=== PATIENT | male | born 1980 | race Caucasian/White ===

== ENCOUNTER 2019-03-30 12:22 | Inpatient (IN) ==
--- OUTSIDE RECORDS SUMMARY | 2019-03-30 12:25 | External Medical Summary | Continuity of Care Document ---
:1980 Author Name Monika Crane, Provider Address Unavailable Unavailable , Care Team Providers Name Role Phone Jake Hooks [email or web address] Unavailable Unavailable Unavailable Unavailable Unavailable Assessments Assessed Problems:Cholelithiasis Problems Cholelithiasis (574.20) (K80.20) Acute and chronic cholecystitis (575.12) (K81.2) Allergies and Adverse Reactions Amoxicillin CAPS (Allergy) cefaclor (Allergy) Macrolides (Allergy) Medications No Reported Medications Refills: 0 Procedures History of Laparoscopic Cholecystectomy With Cholangiography Status: Completed History of ERCP With Removal Of Stones From Biliary/Pancreat ic Status: Completed Ducts Immunizations Immunizations not documented Family History Father Family history of diabetes mellitus (V18.0) (Z83.3) Status: Active Family history of malignant neoplasm (V16.9) (Z80.9) Status: Active Family history of cardiac disorder (V17.49) (Z82.49) Status: Active Mother Family history of hypertension (V17.49) (Z82.49) Status: Act lenka Social History - Smoking Status Never smoker Interventions InstructionsAvoid alcoholic beverages.; Done: 18 Nov 2014Eat a low fat and low cholesterol diet.; Done: 18 Nov 2014 Plan of Treatment Planned Observations Planned Goals not documented Results No Known Results Results not documented Encounters Appointment; Jake Hooks M.D. 18-Nov-2014 8:40 Encounter Diagnosis: Problem not documented
[2019-03-30] MEDS ORDERED: SODIUM CHLORIDE 0.9% 1000ML 1,000 ML IV ONE (12:43)
[2019-03-30 13:06] LABS: Hematocrit (blood only) 38.8 % (42-52); Hemoglobin 13.7 g/dL (14.0-18.0); Mean Corpuscular Hgb Conc 35.3 g/dL (32-36); Mean Platelet Volume 9.2 fL (7.4-10.4); Platelet Count 226 K/uL (130-400); RDW Coefficient of Variation 12.3 % (11.5-14.5); RDW Standard Deviation 37.5 fL (36.4-46.3); Red Blood Count 4.62 M/uL (4.7-6.1); White Blood Count 21.93 K/uL (4.8-10.8)
[2019-03-30 13:24] LABS: BUN Creatinine Ratio 10.3 (10-20); Calcium 9.1 mg/dl (8.5-10.1); Creatinine Clr Calc Pharmacy 86.8 ml/min; Est GFR (African American) 89.6; Est GFR (Non-African American) 77.3; Potassium 3.4 mmol/L (3.5-5.1)
[2019-03-30 13:28] LABS: Basophils # (auto) 0.02 K/uL (0-0.2); Basophils % (auto) 0.1 %; Eosinophils # (auto) 0.44 K/uL (0-0.5); Immature Granulocytes % (auto) 0.5 %; Lymphocytes # (auto) 1.37 K/uL (1.2-3.4); Lymphocytes % (auto) 6.2 %; Monocytes # (auto) 3.18 K/uL (0.11-0.59); Monocytes % (auto) 14.5 %; Neutrophils # (auto) 16.82 K/uL (1.4-6.5); Neutrophils % (auto) 76.7 %
--- NOTE | 2019-03-30 13:35 | Ultrasound Report ---
ULTRASOUND RIGHT CHEST WALL NONVASCULAR CLINICAL HISTORY: Right chest wall swelling and erythema. COMPARISON STUDY: No priors. FINDINGS: Real-time, grayscale, and color flow sonography of the right chest anterior wall is perform ed at the indicated site of interest. There is subcutaneous soft tissue edema and fluid identified th e site of interest. Mild phlegmonous change is suggested. No organized fluid collection is seen to in dicate abscess. The regional tissues appears slightly hyperemic on color imaging. IMPRESSION: There is soft tissue edema with subcutaneous fluid and possible phlegmonous change identi fied in the right chest wall at the site of interest. No organized/drainable fluid collection is iden tified. Electronically signed by: Calvin Abbott M.D. 03/30/2019 1:34 PM
[2019-03-30] MEDS ORDERED: VANCOMYCIN HCL 2,000 MG in SODIUM CHLORIDE 0.9% 500 ML IV ONE (13:45)
[2019-03-30] MEDS ORDERED: VANCOMYCIN CONSULT ACTIVE PRN ×2 (13:45→15:21)
--- NOTE | 2019-03-30 14:52 | History & Physical Report ---
Date of Service March 30, 2019 Assessment & Plan (1) Cellulitis of chest wall: Pt is 38 y/o M without significant PMH presented to ER with c/o right chest redness x 2 days. Reported initially noticed blister like area that he squeezed expressing purulent drainage then bloody drainage and has had increased surrounding erythema to area. C/O chills. In ER pt afebrile, P: 114 down to 92, R: 16, BP: 125/90, 99% on RA. WBC: 21.9, neut: 16, H/H: 13.7/38 (Hgb 15 in 2015), lactate: 1.6 US CHEST: There is soft tissue edema with subcutaneous fluid and possible phlegmonous change identified in the right chest wall at the site of interest. No organized/drainable fluid collection is identified. -Meets SIRS criteria with tachycardia and leukocytosis. -In ER given Vancomycin, 1L NSS -Blood cultures pending -Wound culture pending -MRSA swab -Cefepime, Vancomycin (Pt has been on cefoxitin during previous hospital admission and tolerated without adverse event) -IVF -Monitor CBC, BMP -If worsening or no improvement may need to consider further imaging or surgery consult to consider possible incision and drainage (2) Hypokalemia: K: 3.4 -Replace and monitor BMP DVT Prophylaxis -Ambulate, low risk Follows with Dr Valdez for routine care Pt was seen and care coordinated with Dr Casillas. See addendum History of Present Illness Chief Complaint: Right chest redness Primary Care Provider: Dr Valdez Pt is 38 y/o M without significant PMH presented to ER with c/o right chest redness x 2 days. Patient states approximately 2 days ago noticed a blister like area to right upper chest. Patient admits to squeezing area and initially reports thick purulent drainage then followed by thin or bloody drainage. Yesterday started with tactile fever with chills. Noticed surrounding redness and today was significantly increased surrounding redness. Patient is unsure if had insect bite. Patient does shave chest with clippers. Reports has not been swimming in the past 2 months and was in hot tub 2 months ago. Reports was on clindamycin for 10 days approximately 1 month ago for dental infection. Denies history of MRSA. Denies other rashes, N/V/D/C, TAVARES, dizziness, syncope, vision changes, neck pain, CP, SOB, orthopnea, palpitations, cough, sore throat, dysphagia, choking, otalgia, rhinorrhea, abdominal pain, paresthesias, weakness, extremity weakness, extremity edema, urinary symptoms. Allergies Allergy/AdvReac Type Severity Reaction Status Date / Time cefaclor Allergy Mild Unknown Unverified 03/30/19 13:01 Macrolide Antibiotics Allergy Mild Unknown Unverified 03/30/19 13:01 amoxicillin Allergy Unknown CHILDHOOD Verified 03/30/19 13:01 REACTION Home Medications Home Medications Medication Instructions Recorded Confirmed Type No Known Home Medications 03/30/19 03/30/19 History Past Med/Surg History Medical History Acute cholecystitis (Resolved) Surgical History History of cholecystectomy (Chronic) 2015 Family History Other Cancer Diabetes Social History Preferred Language: Kenyan marital status: Single Current Living Situation: Alone current occupational status: employed Feels Safe at Home: Yes Smoking Status: Never smoker Hx Alcohol Use: No Hx Substance Use: No Review of Systems Review of Systems: All systems reviewed & are unremarkable except as noted in HPI & below Physical Exam Physical Exam: General: no acute distress, WDWN Head: normocephalic, atraumatic Eyes: PERRL, EOM's intact, conjunctiva non-injected, anicteric ENT: normal inspection external ears, nose, mucous membranes moist Neck: supple, trachea midline, non-tender Lungs: clear, no respiratory distress, no wheezing/rhonchi/rales CV: RRR, no murmur, no JVD, no pretibial edema Abd: normal BS, soft, non-tender Ext: no cyanosis, no calf tenderness Neuro: A&O x 3, no focal deficits noted, normal affect Skin: warm, dry Results & Data Vital Signs (Past 12 Hours) Vital Signs Temp Pulse Pulse Resp BP BP Pulse Ox 03/30/19 13:30 92 H 18 139/86 100 03/30/19 12:27 36.9 C 114 H 16 125/90 99 Laboratory Results Short CBC 03/30/19 Range/Units 12:57 WBC 21.93 H (4.8-10.8) K/uL Hgb 13.7 L (14.0-18.0) g/dL Hct 38.8 L (42-52) % Plt Count 226 (130-400) K/uL BMP 03/30/19 12:57 Sodium 136 Potassium 3.4 L Chloride 103 Carbon Dioxide 27 BUN 12 Creatinine 1.18 Glucose 126 H Calcium 9.1 Diagnostic Findings US CHEST: IMPRESSION: There is soft tissue edema with subcutaneous fluid and possible phlegmonous change identified in the right chest wall at the site of interest. No organized/drainable fluid collection is identified. Code Status & VTE Plan VTE Prophylaxis Plan VTE Prophylaxis will be ordered: No Supervising Physician Co-Signing Physician Notes I have seen the patient with physician hr assistant and agree with the assessment and plan and would like to comment that This is a 29 year old Male with cellulitis of anterior chest wall with leukocytosis of 22,000. Patient meets SIRS criteria but is hemodynamically stable. Patient could not tell whether the blistering that patient had popped over the right pectoralis was from insect bite or from shaving with razor blade. In the ED, patient was ordered Vancomycin. Will in addition add Cefepime. Follow blood cultures, wound cultures, and MRSA screen. mildly low serum potassium and give potassium repletions Physical Exam: General: no acute distress Skin/Chest: diffuse redness over bilateral pectoralis, with residual skin lesion from blister that had been popped on right pectoralis Lungs: clear to auscultation bilaterally, no wheezing Abdomen: soft, nontender, positive bowel sounds Extremities: no edema Neuro: moves all extremities, awake and alert, oriented, cooperative, verbal agree with other assessment and plan and history as documented by physician hr assistant My colleague Dr. Larsen will be following the patient starting tomorrow on 03/31/19
[2019-03-30] MEDS ORDERED: CONSULT PHARMACY STA (15:00)
--- NOTE | 2019-03-30 15:19 | Pharmacy Report ---
Pharmacy Abx Initial Consult - Date of Service March 30, 2019 - Pharmacy Dosing Scope Date of Consult: 03/30 Consultation requested by: Diane Blandon Pharmacy is consulted to initiate vancomycin and cefepime IV/PO dosing therapy, order appropriate labs and adjust drug dose/frequency. - Subjective The patient is a 38 year old M admitted on 03/30. - Objective Height: 5 ft 10 in Weight: 77 kg Vital Signs (Past 12hrs): Vital Signs Temp Pulse Pulse Resp BP BP Pulse Ox 03/30/19 13:30 92 H 18 139/86 100 03/30/19 12:27 36.9 C 114 H 16 125/90 99 Lab Results (24hrs): Laboratory Tests (24 Hours) 03/30/19 03/30/19 12:57 12:57 WBC 21.93 H Neut # (Auto) 16.82 H Creatinine 1.18 Est Cr Clr Drug Dosing 86.8 Micro Results: 03/30/19 14:30 Gram Stain - Pending Chest Wound Culture - Pending 03/30/19 14:08 Aerobic Blood Culture - Pending Blood Anaerobic Blood Culture - Pending 03/30/19 14:07 Aerobic Blood Culture - Pending Blood Anaerobic Blood Culture - Pending - Risk Factors for Resistance * Antimicrobial use within the last 90 days [clindamycin] - Assessment & Plan Assessment 38 year old M admitted with right chest redness and concern for cellulitis. Noted purulent drainage from area. Started having fevers/chills yesterday. Chest cultures pending and blood cultures also pending Plan Vancomycin IV * Loading dose of vancomycin 2000 mg (~25 mg/kg) given in ER * Will start maintenance dose of vancomycin 1250 mg (~16 mg/kg) iv q 10 hrs to achieve an estimated trough ~15-20 mcg/ml (goal for cellulitis/+drainage) * Estimated kinetics: t1/2~9 hrs, ke~0.076 hr-1, CrCl ~87 ml/min ; baseline Scr appears to be closer to 1.0 mg/dl * Will plan to obtain a trough prior to the 0600 dose on 04/01 to ensure therapeutic. May consider checking earlier if renal function changes Cefepime * 2 gm iv q 12 hrs - appropriate for skin and skin structure infections / no dosing adjustment for CrCl >60 ml/min Pharmacy will continue to follow and will adjust dose/frequency as necessary. Thank you.
[2019-03-30] MEDS ORDERED: CEFEPIME CONSULT ACTIVE PRN (15:21)
[2019-03-30] MEDS ORDERED: ONDANSETRON INJ 2 MG/ML 2 ML VIAL IV PRN (15:49)
[2019-03-30] MEDS ORDERED: POTASSIUM CHLORIDE 20 MEQ TABCR PO STA ×2 (15:49→23:12)
[2019-03-30] MEDS ORDERED: SODIUM CHLORIDE 0.9% 1000ML 1,000 ML IV SCH (15:49)
[2019-03-30] MEDS: ACETAMINOPHEN 325 MG TAB PO PRN ×2 (16:18→21:59)
[2019-03-30] MEDS ORDERED: CEFEPIME 2,000 MG in SYRINGE 7.5 ML IV SCH (17:00)
--- NOTE | 2019-03-30 19:28 | Emergency Department Note ---
Entered by Apolonia Hernandez acting as a scribe for History of Present Illness General Chief complaint: Bite Stated complaint: INFECTED BUG BITE Time Seen by Provider: 03/30/19 12:33 Source: patient History of Present Illness Onset (ago): day(s) (1.5 days) Location: chest Pain Consistency: + other (worsening) Maximum Pain Intensity: 8 Quality: + other (infection, pressure) Associated symptoms: + diaphoresis, + fever/chills and + other (redness, drainage) The patient is a 38 year old male who presents to the Emergency Room with complaints of a worsening infection starting 1.5 days ago. The patient states that he believes something bit him on his right chest. He states that since then he developed this bump that is like a pimple. He reports that he popped it and it has been draining. He states that he decided to come into the ED as his chest started to become red and the pressure feeling was not going away. The patient complains of fever, chills, and diaphoresis. He notes that he did shave his chest recently with clippers. The patient denies a history of diabetes, a history of HIV, and drug use. Home Medications Home Medications Medication Instructions Recorded Confirmed Type No Known Home Medications 03/30/19 03/30/19 History Allergies Allergy/AdvReac Type Severity Reaction Status Date / Time cefaclor Allergy Mild Unknown Unverified 03/30/19 13:01 Macrolide Antibiotics Allergy Mild Unknown Unverified 03/30/19 13:01 amoxicillin Allergy Unknown CHILDHOOD Verified 03/30/19 13:01 REACTION Past Med/Surg History Medical History Acute cholecystitis (Resolved) Surgical History History of cholecystectomy (Chronic) 2015 Family History Other Cancer Diabetes Social History Preferred Language: Telugu Communication Ability: Effective Hospice Clinical Supervisor Required: No Beliefs That Will Affect Care: None marital status: Single Current Living Situation: Spouse current occupational status: employed Other Information That Helps Us Care for You: No Feels Safe at Home: Yes Safety Concerns: Feels Safe At This Time Smoking Status: Never smoker Hx Alcohol Use: Yes Alcohol type: beer Hx Substance Use: No Review of Systems See HPI for pertinent positives & negatives. and A total of 10 systems reviewed and were otherwise negative Physical Exam Vital Signs Vital Signs - 24 hr 03/30/19 12:27 03/30/19 13:30 Temperature 36.9 C Temperature Source Oral Sepsis Recent Fever Within 48 Hours Yes Sepsis New/Unexplained Change in Mental Status No Sepsis Action Taken by Nursing No Action Required Pulse Rate 114 H Pulse Rate [Left Finger] 92 H Pulse Rhythm Regular Pulse Strength Normal Respiratory Rate 16 18 Respiratory Effort / Characteristics Non-Labored Spontaneous Respiratory Depth Normal Respiratory Pattern Regular Blood Pressure 125/90 Blood Pressure [Left Arm] 139/86 Blood Pressure Mean 101 Blood Pressure Mean [Left Arm] 103 Blood Pressure Position Sitting Pulse Oximetry 99 100 Oxygen Delivery Method Room Air Room Air GENERAL: He is oriented to person, place, and time. He appears well-developed and well-nourished. He does not appear distressed. HENT: Exam performed. - Head: Normocephalic and atraumatic. - Right Ear: External ear normal. No mastoid tenderness. - Left Ear: External ear normal. No mastoid tenderness. - Mouth/Throat: The oropharynx is clear and moist. No trismus in the jaw. No dental abscesses or uvula swelling. No oropharyngeal exudate or tonsillar abscesses. EYES: Conjunctivae and EOM are normal. Pupils are equal, round, and reactive to light. Right eye exhibits no discharge. Left eye exhibits no discharge. No scleral icterus. NECK: Normal range of motion. Neck supple. No JVD present. No spinous process tenderness present. No carotid bruit present. No rigidity. No tracheal deviation and normal range of motion present. No Brudzinski's sign and no Kernig's sign noted. CV: Normal rate, regular rhythm, normal heart sounds and intact distal pulses. There is no peripheral edema. Palpable radial pulses bue. PULM/CHEST: Effort normal and breath sounds normal. No respiratory distress. No stridor. He has no wheezes. He has no rales. - Chest Wall: 3 x 1 cm wound that is actively draining with surrounding warmth and erythema. He exhibits no tenderness. ABD: The abdomen is soft. Bowel sounds are normal. He has no distension. No mass is present. There is no tenderness. There is no rebound, no guarding, no Penaloza's sign and no tenderness at McBurney's point. Rovsig negative. MUSC/SKEL: Normal range of motion. There is no peripheral edema, tenderness or deformity. LYMPH: No cervical adenopathy. NEURO: He is alert and oriented to person, place, and time. He has normal strength. No cranial nerve deficit or sensory deficit. Coordination and gait normal. GCS eye subscore is 4. GCS verbal subscore is 5. GCS motor subscore is 6. Cerebellar tests wnl. PSYCH: He has a normal mood and affect. Behavior is normal. Judgment and thought content normal. Course 1233: Past medical records reviewed. The patient was evaluated in room C2B. A complete history and physical exam was performed. His bedside ultrasound performed by me showed no drainable fluid collection. 1309: Vital signs are improved after IV fluids. His labs show leukocytosis of 22. Lactic acid was within normal limits. Formal ultrasound confirmed what bedside showed that there is no abscess collection or fluid to drain. The patient was started on IV antibiotics and was admitted to the hospital service. 1348: I discussed the patient's case with KENAN Hernandez. She will evaluate the patient for further management. Consultations Consultation #1: I discussed the patient's case with KENAN Hernandez. She will evaluate the patient for further management. Time: 13:48 Administered Medications Acetaminophen (Tylenol) 650 mg PO Q4H PRN PRN Reason: pain/fever Stop: 04/29/19 15:48 Last Admin: 03/30/19 16:18 Dose: 650 mg Documented by: [id number] Sodium Chloride (Nss 1000ml) 1,000 mls @ 125 mls/hr IV .Q8H RUBIN Stop: 03/31/19 07:48 Last Admin: 03/30/19 16:16 Dose: 125 mls/hr Documented by: [id number] Cefepime HCl 2,000 mg/ Syringe 20 mls @ 5 mls/min IV Q12H RUBIN; Protocol Stop: 04/09/19 16:59 Last Admin: 03/30/19 16:25 Dose: 5 mls/min Documented by: [id number] Discontinued Medications Sodium Chloride (Nss 1000ml) 1,000 mls @ 999 mls/hr IV .Q1H1M ONE Stop: 03/30/19 13:43 Last Infusion: 03/30/19 13:31 Dose: 0 mls/hr Documented by: [id number] Admin: 03/30/19 12:58 Dose: 999 mls/hr Documented by: [id number] Vancomycin HCl 2,000 mg/ (Sodium Chloride) 540 mls @ 200 mls/hr IV NOW ONE Stop: 03/30/19 16:26 Last Infusion: 03/30/19 17:20 Dose: 0 mls/hr Documented by: [id number] Admin: 03/30/19 14:22 Dose: 200 mls/hr Documented by: [id number] Potassium Chloride (Klor-Con M20) 40 meq PO NOW STA Stop: 03/30/19 15:50 Last Admin: 03/30/19 16:16 Dose: 40 meq Documented by: [id number] Medical Decision Making Medical Records Attestation: I reviewed the patient's medical records. Home Medications Current Medication List: was personally reviewed by me Laboratory Data Attestation: I reviewed the patient's lab results. Result diagrams: 03/30/19 12:57 03/30/19 12:57 Lab Results 03/30/19 03/30/19 03/30/19 Range/Units 12:57 12:57 12:57 WBC 21.93 H (4.8-10.8) K/uL RBC 4.62 L (4.7-6.1) M/uL Hgb 13.7 L (14.0-18.0) g/dL Hct 38.8 L (42-52) % MCV 84.0 (80-100) fL MCH 29.7 (25-34) pg MCHC 35.3 (32-36) g/dL RDW Std Deviation 37.5 (36.4-46.3) fL RDW Coeff of Man 12.3 (11.5-14.5) % Plt Count 226 (130-400) K/uL MPV 9.2 (7.4-10.4) fL Immature Gran % (Auto) 0.5 % Neut % (Auto) 76.7 % Lymph % (Auto) 6.2 % Brooke % (Auto) 14.5 % Eos % (Auto) 2.0 % Baso % (Auto) 0.1 % Immature Gran # (Auto) 0.10 H (0.00-0.02) K/uL Neut # (Auto) 16.82 H (1.4-6.5) K/uL Lymph # (Auto) 1.37 (1.2-3.4) K/uL Brooke # (Auto) 3.18 H (0.11-0.59) K/uL Eos # (Auto) 0.44 (0-0.5) K/uL Baso # (Auto) 0.02 (0-0.2) K/uL Sodium 136 (136-145) mmol/L Potassium 3.4 L (3.5-5.1) mmol/L Chloride 103 (98-107) mmol/L Carbon Dioxide 27 (21-32) mmol/L Anion Gap 6.0 (3-11) BUN 12 (7-18) mg/dl Creatinine 1.18 (0.6-1.4) mg/dl Est Cr Clr Drug Dosing 86.8 ml/min Est GFR ( Amer) 89.6 Est GFR (Non-Af Amer) 77.3 BUN/Creatinine Ratio 10.3 (10-20) Glucose 126 H (70-99) mg/dl Lactate 1.6 (0.4-2.0) mmol/L Calcium 9.1 (8.5-10.1) mg/dl Imaging Data Radiologist's Impression: Radiology results as stated below per my review and the radiologist's interpretation: ULTRASOUND RIGHT CHEST WALL NONVASCULAR CLINICAL HISTORY: Right chest wall swelling and erythema. COMPARISON STUDY: No priors. FINDINGS: Real-time, grayscale, and color flow sonography of the right chest anterior wall is performed at the indicated site of interest. There is subcutaneous soft tissue edema and fluid identified the site of interest. Mild phlegmonous change is suggested. No organized fluid collection is seen to indicate abscess. The regional tissues appears slightly hyperemic on color imaging. IMPRESSION: There is soft tissue edema with subcutaneous fluid and possible phlegmonous change identified in the right chest wall at the site of interest. No organized/drainable fluid collection is identified. Electronically signed by: Calvin Abbott M.D. 03/30/2019 1:34 PM Blood Pressure Blood Pressure Findings: Elevated blood pressure Blood Pressure Disposition: elevated BP felt to be situational MDM Narrative 1233: Past medical records reviewed. The patient was evaluated in room C2B. A complete history and physical exam was performed. His bedside ultrasound performed by me showed no drainable fluid collection. 1309: Vital signs are improved after IV fluids. His labs show leukocytosis of 22. Lactic acid was within normal limits. Formal ultrasound confirmed what bedside showed that there is no abscess collection or fluid to drain. The patient was started on IV antibiotics and was admitted to the hospital service. 1348: I discussed the patient's case with KENAN Hernandez [facility] Hospitalist. She will evaluate the patient for further management. Impression & Plan Cellulitis of chest wall Discharge Plan Visit Data *Final* Discharge Date/Time: 03/30/19 15:39 Chief Complaint: Bite Stated Complaint: INFECTED BUG BITE ED Provider: Sai Avila Discharge Problem: Cellulitis of chest wall Patient Disposition: Admitted As Inpatient Discharge Instructions Interventions: ED Discharge Assessment Last Done: 03/30/19 15:39 The scribe's documentation has been prepared under my direction and personally reviewed by me in its entirety. I confirm that the note above accurately refle cts all work, treatment, procedures, and medical decision making performed by me.
[2019-03-30] MEDS ORDERED: LACTATED RINGER'S 1,000 ML IV ONE (23:05)
[2019-03-30] MEDS ORDERED: KETOROLAC TROMETHAMINE 15 MG/ML VIAL IV ONE (23:05)
[2019-03-30] MEDS ORDERED: ERTAPENEM SODIUM 1,000 MG in SODIUM CHLORIDE 0.9% 50 ML IV STA (23:09)
--- NOTE | 2019-03-30 23:15 | Hospitalist Progress Note ---
Date of Service March 30, 2019 Subjective Made aware by RN of fever/tachycardia despite initial antibiotic Rx of vancomycin and cefepime for right chest wall cellulitis. AP Sepsis secondary to right chest wall cellulitis Rule out abscess Changed to full admission CT chest RE chest wall swelling rule out abscess Continue vancomycin Change cefepime to Ertapenem for additional anaerobic coverage given history of manipulation IVF bolus. Will relay to AM provider. Results & Data Vital Signs (Past 12 Hours) Vital Signs Temp Pulse Pulse Resp BP BP Pulse Ox 03/30/19 23:00 39 C H 119 H 20 133/77 96 03/30/19 15:57 37.1 C 93 H 18 127/88 99 03/30/19 15:39 87 18 135/91 99 03/30/19 15:35 87 18 135/91 99 03/30/19 13:30 92 H 18 139/86 100 03/30/19 12:27 36.9 C 114 H 16 125/90 99
[2019-03-30 23:51] LABS: Magnesium 2.4 mg/dl (1.8-2.4)
[2019-03-31] MEDS: VANCOMYCIN HCL 1,250 MG in SODIUM CHLORIDE 0.9% 250 ML IV SCH ×3 (00:33→19:30)
[2019-03-31] MEDS ORDERED: KETOROLAC TROMETHAMINE 15 MG/ML VIAL IV ONE (00:44)
[2019-03-31] MEDS ORDERED: LACTATED RINGER'S 1,000 ML IV ONE (01:00)
[2019-03-31] MEDS ORDERED: IOVERSOL 100ml IV PRN (01:20)
[2019-03-31] MEDS ORDERED: LACTATED RINGER'S 1,000 ML IV SCH ×2 (02:00→03:00)
[2019-03-31] MEDS: ACETAMINOPHEN 325 MG TAB PO PRN ×3 (04:31→17:37)
[2019-03-31] MEDS ORDERED: ERTAPENEM CONSULT ACTIVE PRN (05:06)
[2019-03-31 06:00] LABS: Basophils # (auto) 0.02 K/uL (0-0.2); Basophils % (auto) 0.1 %; Eosinophils # (auto) 0.49 K/uL (0-0.5); Eosinophils % (auto) 2.6 %; Hematocrit (blood only) 34.9 % (42-52); Immature Granulocytes # (auto) 0.07 K/uL (0.00-0.02); Immature Granulocytes % (auto) 0.4 %; Lymphocytes % (auto) 10.5 %; Mean Corpuscular Hgb Conc 34.4 g/dL (32-36); Mean Corpuscular Volume 85.1 fL (80-100); Mean Platelet Volume 9.3 fL (7.4-10.4); Monocytes # (auto) 2.36 K/uL (0.11-0.59); Monocytes % (auto) 12.4 %; Platelet Count 241 K/uL (130-400); RDW Coefficient of Variation 12.5 % (11.5-14.5); RDW Standard Deviation 38.8 fL (36.4-46.3); White Blood Count 19.04 K/uL (4.8-10.8)
--- NOTE | 2019-03-31 06:17 | CT Scan Report ---
CT chest w con CLINICAL HISTORY: 38 years-old Male presenting with right anterior chest wall swelling, redness, feve rs, chills, concern for abscess. TECHNIQUE: Multidetector CT imaging of the chest was performed after the administration of intravenou s contrast. IV contrast: 94 mL of Optiray 320. One or more dose lowering techniques were used consist ent with the principles of ALARA (as low as reasonably achievable), including automatic exposure cont rol, mA or kV adjustment to individual patient size, and/or use of iterative reconstruction. COMPARISON: Ultrasound performed the previous day. CT DOSE (mGy.cm): The estimated cumulative dose is 386.28 mGy.cm. FINDINGS: Ophthalmic Pathologist topogram: Cholecystectomy clips. Soft tissues: Normal thyroid and thoracic inlet. Gynecomastia. Extensive skin thickening and subcutan eous infiltration of the right anterior chest wall. Inflammatory changes extend from the right axilla to across the midline. There is focal low-density within the skin and tracking to the immediate subc utaneous tissue a multilobular ill-defined manner. No measurable collection. No infiltration in the s ubsternal fat. Mild swelling of the subjacent right pectoralis major muscle without evidence of an in tramuscular collection. No axillary, supraclavicular, mediastinal, or hilar lymphadenopathy. Normal a xena. Normal heart size. Trace pleural effusions. Cholecystectomy clips. Lungs and airways: No pneumothorax. Central airways patent. Pulmonary arteries are not significantly enlarged relative to adjacent bronchi. No interlobular septal thickening. Minimal dependent changes l ikely atelectasis. Musculoskeletal: Normal osseous structures. No osseous erosion or periosteal reaction to suggest oste omyelitis. IMPRESSION: 1. Extensive right anterior chest wall inflammatory change with phlegmonous change in the skin and i mmediate subcutaneous tissue. No focal abscess. No evidence of osteomyelitis. 2. No acute intrathoracic pathology. Electronically signed by: Eliazar Son M.D. 03/31/2019 6:16 AM
[2019-03-31 06:25] LABS: Estimated Average Glucose 111 mg/dl; Hemoglobin A1C 5.5 % (4.5-5.6)
[2019-03-31 06:31] LABS: BUN Creatinine Ratio 7.2 (10-20); Calcium 8.4 mg/dl (8.5-10.1); Creatinine Clr Calc Pharmacy 103.4 ml/min; Est GFR (African American) 110.7; Est GFR (Non-African American) 95.5; Potassium 3.9 mmol/L (3.5-5.1)
[2019-03-31] MEDS ORDERED: SODIUM CHLORIDE 0.9% 1000ML 1,000 ML IV ONE (14:16)
--- NOTE | 2019-03-31 14:19 | Hospitalist Progress Note ---
Date of Service March 31, 2019 Assessment & Plan (1) Cellulitis of chest wall: Patient is a 38-year-old male with no significant past medical history presents with history of right chest redness and blister associated with purulent drainage x 2 days. Chest wall cellulitis Sepsis-POA Chest CT:Extensive right anterior chest wall inflammatory change with phlegmonous change in the skin and immediate subcutaneous tissue. No focal abscess. No evidence of osteomyelitis. No acute intrathoracic pathology. Wound Cx: Staph aureus Blood Cx: Pending MRSA screen: Negative Continue vancomycin Day #2 Cefepime #1 transition to ertapenem Day #1 Received IV fluids If no improvement, will consider surgery evaluation for possible I&D and repeat imaging (2) Hypokalemia: Resolved Monitor DVT Px: SCDs CODE STATUS Full code Disposition Expect to discharge home when stable Subjective Patient seen and examined at bedside Complains of chest soreness and tenderness Denies any dysphagia, shortness of breath, dizziness, nausea, abdominal pain Febrile this morning Offers no other complaints Review of Systems Review of Systems: All systems reviewed & are unremarkable except as noted in HPI & below Physical Exam Physical Exam: Physical Exam: Vitals signs as noted above General Appearance:Moderately built and nourished, no apparent distress Head: normocephalic, Atraumatic Eyes: normal inspection, EOMI Neck: supple, Trachea midline Respiratory/Chest: Normal breath sounds, CTA, skin lesion, surrounding erythema extending up to the neck, tenderness on chest Cardiovascular: S1, S2, No murmur Abdomen/GI:Soft, Non tender, Bowel sounds present Extremities/Musculoskelatal:normal inspection, no edema Neurologic/Psych:AAOX3, grossly no focal neurological deficits Skin: normal color, warm Results & Data Vital Signs (Past 12 Hours) Vital Signs Temp Pulse Resp BP Pulse Ox 03/31/19 12:52 37.6 C H 94 H 17 130/83 96 03/31/19 10:22 37.6 C H 90 03/31/19 09:29 37.4 C 03/31/19 07:18 37.7 C H 99 H 17 138/77 96 03/31/19 04:38 37.5 C 96 H 18 94 03/31/19 03:41 37.2 C 89 18 117/72 95 Laboratory Results Short CBC 03/31/19 Range/Units 05:15 WBC 19.04 H (4.8-10.8) K/uL Hgb 12.0 L (14.0-18.0) g/dL Hct 34.9 L (42-52) % Plt Count 241 (130-400) K/uL [facility] 03/31/19 05:15 Sodium 140 Potassium 3.9 Chloride 110 H Carbon Dioxide 25 BUN 7 D Creatinine 0.99 Glucose 94 Calcium 8.4 L
[2019-03-31] MEDS: ERTAPENEM SODIUM 1,000 MG in SODIUM CHLORIDE 0.9% 50 ML IV SCH (21:51)
[2019-03-31] MEDS ORDERED: ERTAPENEM SODIUM 1,000 MG in SODIUM CHLORIDE 0.9% 50 ML IV SCH (22:00)
[2019-04-01] MEDS: ACETAMINOPHEN 325 MG TAB PO PRN ×4 (00:05→23:49)
[2019-04-01] MEDS ORDERED: VANCOMYCIN TROUGH ONE (05:30)
[2019-04-01 05:45] LABS: Basophils # (auto) 0.03 K/uL (0-0.2); Basophils % (auto) 0.2 %; Eosinophils # (auto) 0.78 K/uL (0-0.5); Eosinophils % (auto) 5.1 %; Hematocrit (blood only) 37.1 % (42-52); Hemoglobin 13.1 g/dL (14.0-18.0); Immature Granulocytes # (auto) 0.04 K/uL (0.00-0.02); Immature Granulocytes % (auto) 0.3 %; Lymphocytes # (auto) 1.99 K/uL (1.2-3.4); Mean Corpuscular Hgb Conc 35.3 g/dL (32-36); Mean Corpuscular Volume 84.9 fL (80-100); Mean Platelet Volume 8.9 fL (7.4-10.4); Monocytes % (auto) 9.8 %; Neutrophils # (auto) 10.92 K/uL (1.4-6.5); Neutrophils % (auto) 71.6 %; Platelet Count 275 K/uL (130-400); RDW Coefficient of Variation 12.5 % (11.5-14.5); RDW Standard Deviation 38.5 fL (36.4-46.3); Red Blood Count 4.37 M/uL (4.7-6.1); White Blood Count 15.26 K/uL (4.8-10.8)
[2019-04-01] MEDS: VANCOMYCIN HCL 1,250 MG in SODIUM CHLORIDE 0.9% 250 ML IV SCH ×3 (05:51→23:50)
[2019-04-01 06:15] LABS: BUN Creatinine Ratio 7.6 (10-20); Calcium 8.7 mg/dl (8.5-10.1); Creatinine Clr Calc Pharmacy 110.1 ml/min; Est GFR (African American) 119.4; Potassium 3.6 mmol/L (3.5-5.1)
--- NOTE | 2019-04-01 15:36 | Surgery Consultation ---
Date of Consultation April 01, 2019 Assessment & Plan (1) Cellulitis of chest wall: 04/01/19 17:50 cellulitis ant chest wall for chris 3 days question etiology pt states greatly improved with antibiotics on exam intesnse area of cellulitis and erythema above right breat chris 10 cm dx with area od skin necrosis central portion chris 2 cm or so no area of fluctuance nothing to drain at this time but may need debridement of necrosis will watch for now DR Hooks Improved with IV abx. CT and U/S did not show drainable collections on 03/30. Will watch overnight, keep NPO and if no further improvement consider repeat U/S vs I&D in the OR. Supervising Physician Co-Signing Physician Notes I have seen the patient with physician front desk assistant and agree with the assessment and plan and would like to comment that This is a 29 year old Male with cellulitis of anterior chest wall with leukocytosis of 22,000. Patient meets SIRS criteria but is hemodynamically stable. Patient could not tell whether the blistering that patient had popped over the right pectoralis was from insect bite or from shaving with razor blade. In the ED, patient was ordered Vancomycin. Will in addition add Cefepime. Follow blood cultures, wound cultures, and MRSA screen. mildly low serum potassium and give potassium repletions Physical Exam: General: no acute distress Skin/Chest: diffuse redness over bilateral pectoralis, with residual skin lesion from blister that had been popped on right pectoralis Lungs: clear to auscultation bilaterally, no wheezing Abdomen: soft, nontender, positive bowel sounds Extremities: no edema Neuro: moves all extremities, awake and alert, oriented, cooperative, verbal agree with other assessment and plan and history as documented by physician front desk assistant My colleague Dr. Larsen will be following the patient starting tomorrow on 03/31/19 History of Present Illness Attending Physician: Aron Larsen MD History of Present Illness 38 y/o male with anterior left chest wall cellulitis admitted 2 days ago. Symptoms began about a day and a half prior, some redness, a blister or pimple and some drainage. This progressed rather rapidly over the next day. Feels better today. No current drainage. No fevers since yesterday. Erythema has improved. Allergies Allergy/AdvReac Type Severity Reaction Status Date / Time cefaclor Allergy Mild Unknown Unverified 03/30/19 13:01 Macrolide Antibiotics Allergy Mild Unknown Unverified 03/30/19 13:01 amoxicillin Allergy Unknown CHILDHOOD Verified 03/30/19 13:01 REACTION Home Medications Home Medications Medication Instructions Recorded Confirmed Type No Known Home Medications 03/30/19 03/30/19 History Patient History Medical History Acute cholecystitis (Resolved) Surgical History History of cholecystectomy (Chronic) 2014 Family History Other Cancer Diabetes Social History Preferred Language: Spanish Communication Ability: Effective Director Of Sustainability Required: No Beliefs That Will Affect Care: None marital status: Single Current Living Situation: Spouse current occupational status: employed Other Information That Helps Us Care for You: No Feels Safe at Home: Yes Safety Concerns: Feels Safe At This Time Smoking Status: Never smoker Hx Alcohol Use: Yes Alcohol type: beer Hx Substance Use: No Review of Systems Constitutional: + fever and + chills Physical Exam Constitutional: WD/WN, vitals as above Chest (Breasts): Additional Comments: left anterior upper chest 2 cm are superficial skin necrosis, 10+ cm erythema and induration, no fluctuance, erythema reduced about 75% from previously outlined Results & Data Vital Signs (Past 12 Hours) Vital Signs Temp Pulse Resp BP Pulse Ox 04/01/19 14:49 37.1 C 75 17 124/81 96 04/01/19 12:30 36.8 C 77 17 128/89 96 04/01/19 07:19 37.4 C 86 17 130/81 96 04/01/19 04:00 37 C 80 18 134/68 98 PG Care Time/CCT Total # of Minutes Spent Total Time Spent with Patient: Total time spent is greater than 50% in coordination of care (as documented) at patient's floor/unit and/or counseling patient:
--- NOTE | 2019-04-01 16:36 | Pharmacy Report ---
Pharmacy Abx Dose Short Note - Date of Service April 01, 2019 - Assessment & Plan Assessment 38 year old M receiving vancomycin and ertapenem for treatment of cellulitis Day #4 of antimicrobial therapy Wound positive for MSSA; Dr. Larsen would like to continue both vancomycin and ertapenem for at least one more day Plan Vancomycin * Trough level of 10 mcg/mL subtherapeutic * Change to 1250 mg IV every 8 hours * Goal trough level: ~15 mcg/ml * Trough ordered for 04/02/17 @1530 Pharmacy will continue to follow and will adjust dose/frequency as necessary. Thank you.
[2019-04-01] MEDS ORDERED: BUTALBITAL/ACETAMIN/CAFFEINE TAB PO STA (18:31)
--- NOTE | 2019-04-01 19:05 | Hospitalist Progress Note ---
Date of Service April 01, 2019 Assessment & Plan (1) Cellulitis of chest wall: Patient is a 38-year-old male with no significant past medical history presents with history of right chest redness and blister associated with purulent drainage x 2 days. Chest wall cellulitis Sepsis-POA Chest CT:Extensive right anterior chest wall inflammatory change with phlegmonous change in the skin and immediate subcutaneous tissue. No focal abscess. No evidence of osteomyelitis. No acute intrathoracic pathology. Wound Cx: Staph aureus Blood Cx: No growth to date MRSA screen: Negative Continue vancomycin Day #3 Cefepime #1 transition to ertapenem Day #2 Received IV fluids Appreciate surgery Input May need wound debridement (2) Hypokalemia: Resolved Monitor DVT Px: SCDs CODE STATUS Full code Disposition Expect to discharge home when stable Subjective Patient seen and examined at bedside Necrotic skin noted Still has chest soreness Denies any dysphagia, shortness of breath, dizziness, nausea, abdominal pain Afebrile today Offers no other complaints Review of Systems Review of Systems: All systems reviewed & are unremarkable except as noted in HPI & below Physical Exam Physical Exam: Physical Exam: Vitals signs as noted above General Appearance:Moderately built and nourished, no apparent distress Head: normocephalic, Atraumatic Eyes: normal inspection, EOMI Neck: supple, Trachea midline Respiratory/Chest: Normal breath sounds, CTA, skin lesion--necrosis, surrounding erythema extending up to the neck, tenderness on chest Cardiovascular: S1, S2, No murmur Abdomen/GI:Soft, Non tender, Bowel sounds present Extremities/Musculoskelatal:normal inspection, no edema Neurologic/Psych:AAOX3, grossly no focal neurological deficits Skin: normal color, warm Results & Data Vital Signs (Past 12 Hours) Vital Signs Temp Pulse Resp BP Pulse Ox 04/01/19 18:18 37.5 C 04/01/19 14:49 37.1 C 75 17 124/81 96 04/01/19 12:30 36.8 C 77 17 128/89 96 04/01/19 07:19 37.4 C 86 17 130/81 96 Laboratory Results Short CBC 04/01/19 Range/Units 05:32 WBC 15.26 H (4.8-10.8) K/uL Hgb 13.1 L (14.0-18.0) g/dL Hct 37.1 L (42-52) % Plt Count 275 (130-400) K/uL [facility] 04/01/19 05:32 Sodium 140 Potassium 3.6 Chloride 108 H Carbon Dioxide 28 BUN 7 Creatinine 0.93 Glucose 96 Calcium 8.7
[2019-04-01] MEDS: ERTAPENEM SODIUM 1,000 MG in SODIUM CHLORIDE 0.9% 50 ML IV SCH (21:51)
[2019-04-02 05:40] LABS: Basophils # (auto) 0.03 K/uL (0-0.2); Basophils % (auto) 0.3 %; Eosinophils # (auto) 0.46 K/uL (0-0.5); Hemoglobin 12.6 g/dL (14.0-18.0); Immature Granulocytes # (auto) 0.04 K/uL (0.00-0.02); Immature Granulocytes % (auto) 0.3 %; Lymphocytes # (auto) 2.01 K/uL (1.2-3.4); Lymphocytes % (auto) 17.5 %; Mean Corpuscular Volume 84.1 fL (80-100); Mean Platelet Volume 8.8 fL (7.4-10.4); Monocytes # (auto) 0.91 K/uL (0.11-0.59); Monocytes % (auto) 7.9 %; Neutrophils # (auto) 8.03 K/uL (1.4-6.5); Platelet Count 319 K/uL (130-400); RDW Coefficient of Variation 12.6 % (11.5-14.5); RDW Standard Deviation 38.2 fL (36.4-46.3); Red Blood Count 4.28 M/uL (4.7-6.1); White Blood Count 11.48 K/uL (4.8-10.8)
[2019-04-02 06:08] LABS: BUN Creatinine Ratio 10.9 (10-20); Calcium 9.2 mg/dl (8.5-10.1); Creatinine Clr Calc Pharmacy 104.5 ml/min; Est GFR (African American) 112.1; Est GFR (Non-African American) 96.7; Potassium 3.5 mmol/L (3.5-5.1)
[2019-04-02] MEDS: VANCOMYCIN HCL 1,250 MG in SODIUM CHLORIDE 0.9% 250 ML IV SCH (08:12)
--- NOTE | 2019-04-02 08:31 | Surgery Progress Note ---
Date of Service April 02, 2019 Assessment & Plan (1) Cellulitis of chest wall: Hospital day #2 WBC decreasing 11.4 today from 15 Continue IV abx Chest wall cellulitis and erythema improving Will add Santyl for wound debridement No surgical needs today, okay for patient to eat Patient seen and examined with Dr. Hooks Subjective Patient without much complaints overnight. Thinks the wound redness is improving. Wishes to eat if able. Physical Exam Physical Exam: awake/alert Chest (Breasts): Additional Comments: Right chest wall erythema improving and area of cellulitis decreasing in size. Central area of necrosis/scabbing remains present Results & Data Vital Signs (Past 12 Hours) Vital Signs Temp Pulse Resp BP Pulse Ox 04/02/19 07:33 36.6 C 68 18 137/88 97 04/02/19 04:00 36.9 C 74 18 134/82 96 04/01/19 23:00 37.1 C 80 20 143/87 H 98 PG Care Time/CCT Total # of Minutes Spent Total Time Spent with Patient: Total time spent is greater than 50% in coordination of care (as documented) at patient's floor/unit and/or counseling patient:
[2019-04-02] MEDS: COLLAGENASE OINT 30 GM TUBE EXT SCH (09:47)
[2019-04-02] MEDS ORDERED: VANCOMYCIN TROUGH ONE (15:30)
--- NOTE | 2019-04-02 15:33 | Hospitalist Progress Note ---
Date of Service April 02, 2019 Assessment & Plan (1) Cellulitis of chest wall: Patient is a 38-year-old male with no significant past medical history presents with history of right chest redness and blister associated with purulent drainage x 2 days. Chest wall cellulitis Sepsis-POA Chest CT:Extensive right anterior chest wall inflammatory change with phlegmonous change in the skin and immediate subcutaneous tissue. No focal abscess. No evidence of osteomyelitis. No acute intrathoracic pathology. Wound Cx: Staph aureus Blood Cx: No growth to date MRSA screen: Negative Continue vancomycin Day #3--Discontinued Cefepime #1 transition to ertapenem Day #3 Plan to transition to p.o. antibiotics upon discharge Received IV fluids Santyl added for wound debridement Continue wound care Appreciate surgery Input (2) Hypokalemia: Resolved Monitor DVT Px: SCDs CODE STATUS Full code Disposition Expect to discharge home when stable Subjective Patient seen and examined at bedside No new complaints Wound erythema, pain improving Afebrile today No plan for wound debridement Denies any chest pain, SOB, dizziness, nausea, abdominal pain Review of Systems Review of Systems: All systems reviewed & are unremarkable except as noted in HPI & below Physical Exam Physical Exam: Physical Exam: Vitals signs as noted above General Appearance:Moderately built and nourished, no apparent distress Head: normocephalic, Atraumatic Eyes: normal inspection, EOMI Neck: supple, Trachea midline Respiratory/Chest: Normal breath sounds, CTA, wound in dressing, erythema decreased Cardiovascular: S1, S2, No murmur Abdomen/GI:Soft, Non tender, Bowel sounds present Extremities/Musculoskelatal:normal inspection, no edema Neurologic/Psych:AAOX3, grossly no focal neurological deficits Skin: normal color, warm Results & Data Vital Signs (Past 12 Hours) Vital Signs Temp Pulse Resp BP Pulse Ox 04/02/19 15:23 37.2 C 79 18 123/78 94 04/02/19 07:33 36.6 C 68 18 137/88 97 04/02/19 04:00 36.9 C 74 18 134/82 96 Laboratory Results Short CBC 04/02/19 Range/Units 04:50 WBC 11.48 H (4.8-10.8) K/uL Hgb 12.6 L (14.0-18.0) g/dL Hct 36.0 L (42-52) % Plt Count 319 (130-400) K/uL [facility] 04/02/19 04:50 Sodium 142 Potassium 3.5 Chloride 107 Carbon Dioxide 25 BUN 11 D Creatinine 0.98 Glucose 100 H Calcium 9.2
[2019-04-02] MEDS: ACETAMINOPHEN 325 MG TAB PO PRN (19:18)
[2019-04-02] MEDS: ERTAPENEM SODIUM 1,000 MG in SODIUM CHLORIDE 0.9% 50 ML IV SCH (21:23)
[2019-04-03 06:17] LABS: Hemoglobin 13.4 g/dL (14.0-18.0); Mean Corpuscular Hgb Conc 35.3 g/dL (32-36); Mean Corpuscular Volume 84.4 fL (80-100); Mean Platelet Volume 8.9 fL (7.4-10.4); Platelet Count 362 K/uL (130-400); RDW Coefficient of Variation 12.5 % (11.5-14.5); RDW Standard Deviation 38.5 fL (36.4-46.3); White Blood Count 10.57 K/uL (4.8-10.8)
[2019-04-03 06:45] LABS: BUN Creatinine Ratio 15.1 (10-20); Creatinine Clr Calc Pharmacy 97.5 ml/min; Est GFR (African American) 103.1; Potassium 3.5 mmol/L (3.5-5.1)
[2019-04-03] MEDS ORDERED: VANCOMYCIN TROUGH ONE (07:30)
[2019-04-03] MEDS: COLLAGENASE OINT 30 GM TUBE EXT SCH (08:28)
--- NOTE | 2019-04-03 08:29 | Surgery Progress Note ---
Date of Service April 03, 2019 Assessment & Plan (1) Cellulitis of chest wall: Hospital Day #3 WBC continues to downtrend, 10.5 today. Blood cultures NGTD. Santyl dressing changes implemented yesterday and central area of necrosis starting to slough Continue IV abx Pain improved Subjective Patient without much complaints overnight. Says his wound started draining some. Pain overall is decreasing. He is eating without issues. Physical Exam Physical Exam: awake/alert Respiratory: normal respiratory effort; no respiratory distress Chest (Breasts): Additional Comments: Area of cellulitis centralizing around right chest/breast region, decreased in size. Still with some induration/erythema. Area of necrosis/scabbing starting to slough off. Results & Data Vital Signs (Past 12 Hours) Vital Signs Temp Pulse Resp BP Pulse Ox 04/03/19 07:14 37.1 C 75 18 138/83 96 04/03/19 03:52 36.9 C 75 18 119/80 96 04/02/19 22:58 37.1 C 79 19 125/76 96 PG Care Time/CCT Total # of Minutes Spent Total Time Spent with Patient: Total time spent is greater than 50% in coordination of care (as documented) at patient's floor/unit and/or counseling patient:
--- NOTE | 2019-04-03 13:12 | Hospitalist Progress Note ---
Date of Service April 03, 2019 Assessment & Plan (1) Cellulitis of chest wall: Patient is a 38-year-old male with no significant past medical history presents with history of right chest redness and blister associated with purulent drainage x 2 days. Chest wall cellulitis Sepsis-POA Chest CT:Extensive right anterior chest wall inflammatory change with phlegmonous change in the skin and immediate subcutaneous tissue. No focal abscess. No evidence of osteomyelitis. No acute intrathoracic pathology. Wound Cx: Staph aureus Blood Cx: No growth to date MRSA screen: Negative Continue vancomycin Day #3--Discontinued Cefepime #1 transition to ertapenem Day #4 Plan to transition to p.o. antibiotics upon discharge--Likely Bactrim Received IV fluids Continue Santyl for wound debridement Continue wound care Appreciate surgery Input Clinically improving (2) Hypokalemia: Resolved Monitor DVT Px: SCDs CODE STATUS Full code Disposition Expect to discharge home when stable Subjective Patient seen and examined at bedside Has some discharge from the chest wound Pain is decreasing No leukocytosis, afebrile Denies any chest pain, SOB, dizziness, nausea, abdominal pain Offers no other complaints Review of Systems Review of Systems: All systems reviewed & are unremarkable except as noted in HPI & below Physical Exam Physical Exam: Physical Exam: Vitals signs as noted above General Appearance:Moderately built and nourished, no apparent distress Head: normocephalic, Atraumatic Eyes: normal inspection, EOMI Neck: supple, Trachea midline Respiratory/Chest: Normal breath sounds, CTA, wound in dressing, erythema decreased Cardiovascular: S1, S2, No murmur Abdomen/GI:Soft, Non tender, Bowel sounds present Extremities/Musculoskelatal:normal inspection, no edema Neurologic/Psych:AAOX3, grossly no focal neurological deficits Skin: normal color, warm Results & Data Vital Signs (Past 12 Hours) Vital Signs Temp Pulse Resp BP Pulse Ox 04/03/19 11:10 37.1 C 75 18 125/81 94 04/03/19 07:14 37.1 C 75 18 138/83 96 04/03/19 03:52 36.9 C 75 18 119/80 96 Laboratory Results Short CBC 04/03/19 Range/Units 05:26 WBC 10.57 (4.8-10.8) K/uL Hgb 13.4 L (14.0-18.0) g/dL Hct 38.0 L (42-52) % Plt Count 362 (130-400) K/uL [facility] 04/03/19 05:26 Sodium 140 Potassium 3.5 Chloride 105 Carbon Dioxide 28 BUN 16 Creatinine 1.05 Glucose 104 H Calcium 9.0
--- NOTE | 2019-04-03 14:08 | Discharge Summary ---
Date of Service April 03, 2019 Admission HPI Per Admitting Provider Pt is 38 y/o M without significant PMH presented to ER with c/o right chest redness x 2 days. Patient states approximately 2 days ago noticed a blister like area to right upper chest. Patient admits to squeezing area and initially reports thick purulent drainage then followed by thin or bloody drainage. Yesterday started with tactile fever with chills. Noticed surrounding redness and today was significantly increased surrounding redness. Patient is unsure if had insect bite. Patient does shave chest with clippers. Reports has not been swimming in the past 2 months and was in hot tub 2 months ago. Reports was on clindamycin for 10 days approximately 1 month ago for dental infection. Denies history of MRSA. Denies other rashes, N/V/D/C, TAVARES, dizziness, syncope, vision changes, neck pain, CP, SOB, orthopnea, palpitations, cough, sore throat, dysphagia, choking, otalgia, rhinorrhea, abdominal pain, paresthesias, weakness, extremity weakness, extremity edema, urinary symptoms. Admission Exam Per Admitting Provider General: no acute distress, WDWN Head: normocephalic, atraumatic Eyes: PERRL, EOM's intact, conjunctiva non-injected, anicteric ENT: normal inspection external ears, nose, mucous membranes moist Neck: supple, trachea midline, non-tender Lungs: clear, no respiratory distress, no wheezing/rhonchi/rales CV: RRR, no murmur, no JVD, no pretibial edema Abd: normal BS, soft, non-tender Ext: no cyanosis, no calf tenderness Neuro: A&O x 3, no focal deficits noted, normal affect Skin: warm, dry Principal Diagnosis Chest wall cellulitis Sepsis Discharge Data Allergies Allergy/AdvReac Type Severity Reaction Status Date / Time cefaclor Allergy Mild Unknown Unverified 03/30/19 13:01 Macrolide Antibiotics Allergy Mild Unknown Unverified 03/30/19 13:01 amoxicillin Allergy Unknown CHILDHOOD Verified 03/30/19 13:01 REACTION Consultations 03/30/19 13:46 ED Decision to Admit Stat 03/30/19 15:49 Consult Case Management - Discharge Planning Routine 04/01/19 12:08 Consult General Surgery Routine Procedures Performed Chest CT: Extensive right anterior chest wall inflammatory change with phlegmonous change in the skin and immediate subcutaneous tissue. No focal abscess. No evidence of osteomyelitis. No acute intrathoracic pathology. Chest USD: There is soft tissue edema with subcutaneous fluid and possible phlegmonous change identified in the right chest wall at the site of interest. No organized/drainable fluid collection is identified. Ordered Studies 03/30/19 13:00 US effusion-chest/mediastinum Stat 03/30/19 23:14 CT chest w con Urgent Hospital Course (1) Cellulitis of chest wall: Patient is a 38-year-old male with no significant past medical history presents with history of right chest redness and blister associated with purulent drainage x 2 days. Chest wall cellulitis Sepsis-POA Chest CT:Extensive right anterior chest wall inflammatory change with phlegmonous change in the skin and immediate subcutaneous tissue. No focal abscess. No evidence of osteomyelitis. No acute intrathoracic pathology. Wound Cx: Staph aureus Blood Cx: No growth to date MRSA screen: Negative Continue vancomycin Day #3--Discontinued Cefepime #1 transition to ertapenem Day #4 Plan to transition to p.o. antibiotics upon discharge--Likely Bactrim Received IV fluids Continue Santyl for wound debridement Continue wound care Appreciate surgery Input Clinically improving (2) Hypokalemia: Resolved Monitor DVT Px: SCDs CODE STATUS Full code Disposition Expect to discharge home when stable Total Time Total Time Spent Total Time Spent (In Minutes): 40 minutes Total Time Includes: Examination of the Patient, Discharge Planning, Medication Reconciliation, Communication With Other Providers and Other Discharge Plan Discharge Items Patient Disposition: Home - Self-Care Reason For Visit: CHEST CELLULITIS Discharge Diagnosis: Chest wall cellulitis Sepsis Activity: Resume your previous activity Exercise/Sports: Gradually increase as tolerated Non-emergency contact: Primary Care Provider and Surgeon Call non-emergency contact if: you have any medication questions, your symptoms worsen, your pain is not controlled, your pain is worsening, your pain is unusual for you, your pain is concerning for you, you have a fever, your wound has increased redness, your wound has increased drainage and your wound pain has increased Follow-up/Referrals: Jake Hooks MD [Surgeon] - (Please call to schedule follow up with Dr. Hooks this upcoming Tuesday04/06/19 for close wound monitoring and for local wound care at the clinic. If you have any questions/concerns you may call the office sooner.) Pio Valdez MD [Primary Care Provider] - Diet: Regular Addtl Attending Provider Instructions: Follow-up with your primary care physician Dr. Valdez on April 09, 2019 at 11:05 AM Follow-up with your surgeon Dr. Hooks on April 06, 2019 as scheduled Complete the antibiotic course Bactrim for 6 more days as prescribed Continue wound dressing as instructed Seek immediate medical attention if your symptoms reoccur or worsen Pending Studies at Discharge: No Stand-Alone Forms: [facility] Medications and DC Order Prescriptions: New Santyl 250 unit/gram Ointment 1 applic EXT DAILY Qty: 0 RF: 0 sulfamethoxazole-trimethoprim [Bactrim DS] 800-160 mg tablet 1 tab PO BID Qty: 13 RF: 0 Discharge Orders: Discharge Order (Routine); Ordered 04/03/19 Ordered By: Aron Larsen Admission Data Admit Date/Time: 03/31/19 10:57 Attending Provider: Aron Larsen Admit Provider: Claude Casillas Primary Care Provider: Pio Valdez Other Providers: Claude Casillas ; Jake Hooks Other Interventions: Discharge Summary Assessment (RN) Last Done: 04/03/19 13:57 DC Date/Time DO NOT enter until pt leaves facility: 04/03/19 15:30
== END 2019-04-03 15:30 | disposition home or self-care (01) | DRG 872 ==
LOC: ED 12:22 → 4W 12:22 → SUATTDRO 15:12 → 4W 15:39